=== PATIENT | female | born 1940 | race Caucasian/White ===

== ENCOUNTER 2020-07-23 13:03 | Emergency (ER) | payer OTHER ==
[~2020-07-23] VITALS: Ht 160 cm; Wt 56.7 kg
[2020-07-23] MEDS ORDERED: SYNTHROID137 MC1 PO ×2 (13:41)
[2020-07-23] MEDS ORDERED: BUSPIRONE HCL5 GM PO (13:42)
[2020-07-23 14:03] LABS: URINE BILIRUBIN NEGATIVE (Negative); URINE BLOOD NEGATIVE (Negative); URINE CLARITY CLEAR; URINE COLOR YELLOW; URINE GLUCOSE-RANDOM* NEGATIVE (Negative); URINE KETONES 1+ (Negative); URINE LEUKOCYTES-REFLEX NEGATIVE (Negative); URINE NITRITE-REFLEX NEGATIVE (Negative); URINE PROTEIN (DIPSTICK) NEGATIVE (Negative); URINE UROBILINOGEN 0.2 E.U./dl (0.2-1.0)
[2020-07-23 14:11] LABS: AMP/METHAMP Negative (Negative); BARBITURATES Negative (Negative); BENZODIAZEPINES Negative (Negative); COCAINE Negative (Negative); METHADONE Negative (Negative); OPIATES Negative (Negative); PCP Negative (Negative)
[2020-07-23 15:22] LABS: HEMOGLOBIN 14.8 gm/dL (12.0-15.0); MCH 32.5 pg (26.0-34.0); MCHC 34.4 g/dL (28.0-37.0); MCV 94.3 fL (80.0-100.0); RBC 4.56 mil/uL (4.20-5.00); WBC 6.3 thou/uL (4.0-11.0)
[2020-07-23 15:49] LABS: ANION GAP 12 mmol/L (7-16); BUN 12 mg/dL (7-18); CALCIUM 9.9 mg/dL (8.5-10.1); CHLORIDE 100 mmol/L (98-107); CO2 24 mmol/L (21-32); CREATININE 0.8 mg/dL (0.6-1.0); GLUCOSE 115 mg/dL (74-106); POTASSIUM 3.8 mmol/L (3.5-5.1); SODIUM 136 mmol/L (136-145)
[2020-07-23 15:55] LABS: ALBUMIN 4.7 g/dL (3.4-5.0); SALICYLATE < 2.8 mg/dL (2.8-20.0); SGOT 55 U/L (15-37); SGPT 59 U/L (14-59); TOTAL BILIRUBIN 0.5 mg/dL (0.2-1.0); TOTAL PROTEIN 8.4 g/dL (6.4-8.2)
[2020-07-23 23:16] VITALS: BP 115/53
[2020-07-24] MEDS ORDERED: SYNTHROID88 MC1 PO (05:32)
[2020-07-24] MEDS ORDERED: NORVASC5 MG PO (05:32)
[2020-07-24] MEDS ORDERED: RIVASTIGMINE6 MG PO (07:16)
[2020-07-24] MEDS ORDERED: DOXEPIN 25 MG C25 M1 PO (07:17)
== END 2020-07-24 04:47 ==
LOC: ER 13:03
PROVIDERS: Nurse Practitioner Family
DX: F32.9 Major depressive disorder, single episode, unspecified (principal); F03.90 Unspecified dementia, unspecified severity, without behavioral disturbance, psychotic disturbance, mood disturbance, and anxiety; I10 Essential (primary) hypertension; Z79.899 Other long term (current) drug therapy; Z20.822 Contact with and (suspected) exposure to COVID-19

== ENCOUNTER 2020-07-23 16:29 | Inpatient (IN) | payer OTHER ==
[~2020-07-23] VITALS: Ht 160 cm; Wt 64.2 kg
--- NOTE | ~2020-07-23 | D ---
[facility] [place] [address] DISCHARGE SUMMARY Name: ELIZA GUIDRY Room #: 522B-B DIS IN M.R.#: [id number] Admission: 07/24/20 Attend Phys: Jae Aponte DO Discharge: 07/26/20 Date of : 44 Report #: [id number] THIS REPORT FOR: cc: Jose Haynes MD, Christopher B. MD Kerstein, Andrew H. DO ~ DATE OF SERVICE: 07/26/2020 INPATIENT PSYCHIATRIC DISCHARGE ATTENDING PHYSICIAN: Jae Aponte DO. ENROLLMENT MANAGEMENT COORDINATOR: Tiburcio Galaviz MD Please note, the patient was discharged emergently to the CCU after she had a witnessed seizure. DISCHARGE DIAGNOSES: Besides the seizure is as follows: Major neurocognitive disorder with behavioral disturbance, unspecified depression. Other medical comorbidities include hypertension, on Norvasc; hypothyroidism, on Synthroid and insomnia. DISCHARGE MEDICATIONS: Per the hospitalist ____ emergency nature. DISCHARGE DIET: Regular ____ n.p.o. LABORATORY DATA: Significant laboratories this admission included, it looks like al that was from 07/27/2020 after she went medical. REASON FOR PSYCHIATRIC ADMISSION: Back on the is as follows; 80-year-old female, [facility] referred by Dr. Jose Haynes. Laboratories were grossly normal, done in the ER. COVID-19 PCR was negative. TSH is 1.205. Apparently, the patient has been unable to sleep for about 3 nights, history of dementia, also her residence was in poor condition. HOSPITAL COURSE: The patient was admitted to Geriatric Psychiatry Unit. She had actually a SLUMS score of 24/30, dementia was reportedly diagnosed by ____ and Dr. Elizabeth. Basically ____ gotten much further and clinical progress when the seizure occurred. There is no discharge mental status examination. VITAL SIGNS: At time of discharge to Medical Unit are as follows: Temperature 98.1, pulse ____, BP ____, O2 sat 100%. The medical workup and so forth for the seizures covered in the hospitalist [facility] [address] [place] [address] DISCHARGE SUMMARY Name: ELIZA GUIDRY Room #: 522B-B [facility]#: [id number] Admission: 07/24/20 Attend Phys: Jae Aponte DO Discharge: 07/26/20 Date of : 42 Report #: [id number] PROGNOSIS: For this patient is guarded, I will be happy to continue to follow her while she is on the Medical Unit. By: 2154 Jae Aponte DO /nt
[~2020-07-23 16:29] MED LIST: BUSPIRONE HCL5 GM PO; SYNTHROID137 MC1 PO
[2020-07-24] MEDS ORDERED: NORVASC5 MG PO (05:32)
[2020-07-24] MEDS ORDERED: SYNTHROID88 MC1 PO (05:32)
[2020-07-24 06:33] VITALS: BP 102/62
--- NOTE | 2020-07-24 06:55 | NUR ---
RECIEVED PT FROM ED VIA SLICK UPON ARRIVAL TO UNIT PT ALERT AND ORIENTED X4 CALM AND COOPERATIVE,ASSESSMENT AND DATA BASE COMPLETED. DISCUSSED PLAN OF CARE. PT STATES SHE IS REASDY TO RETURN TO HER HOME AND THAT SHE HERE DUE TO HER BEING LONELY AND MAYBE ANXIOUS. PT RESTING IN BED.
[2020-07-24] MEDS ORDERED: RIVASTIGMINE6 MG PO (07:16)
[2020-07-24] MEDS ORDERED: DOXEPIN 25 MG C25 M1 PO (07:17)
[2020-07-24 09:52] VITALS: BP 112/79
--- NOTE | 2020-07-24 13:53 | NUR ---
Nutrition: pt admit with major neurocognitive disorder, demenita, anxiety. Hx of depression, HTN. No breakfast intake, nsg reported to was slow to eat lunch and only finished about 50%. Wt is WNL, no wt hx. Albumin WNL. Meds reviewed. Will trial Ensure Enlive BID. Assessed at low-mild nutrition risk, RD follow-up 07/29.
--- NOTE | 2020-07-24 17:46 | NUR ---
0700 ASSUMED CARE OF PATIENT, PATIENT CALM AND COOPERATIVE. AMB WITH A STEADY GAIT. MEDICATIONS TAKEN WHOLE. PREOCCUPIED WITH MEDICATIONS AND BELIEVES SOME ARE MAKING HER SHAKE MORE THAN NORMAL. PATIENTS VITALS WNL. NO C/O PAIN. PATIENT SPOKE WITH DR COCHRAN REGARDING MEDICATION. PATIENT ALERT AND ORIENTED X3. LS CLEAR, BS ACTIVE. DENIES SI/HI.
[2020-07-24 19:26] VITALS: BP 112/79; BP 160/80
--- NOTE | 2020-07-25 05:30 | NUR ---
RECEIVED CARE OF THIS PATIENT AT 1900. PATIENT ALERT AND ORIEENTED XT PERSON AND PLACE. DOES NOT UNDERSTAND WHY SHE IS HERE NOR HOW SHE GOT HERE. AXIOUS ABOUT HER MEDICATIONS. DOES NOT WANT TO TAKE LEVOTHYROXINE FOR HER SYNTHROID. WORRIED ABOUT HER PURSE AND HER PHONE. WANTS IT TO BE CHARGED SO SHE CAN MAKE CALLS THIS AM. DENIES BEING AND HAVING A GRANDSON. WANTS TO KNOW HOW SHE CAN SIGH HER SELF OUT. VERY PARANOID, AGITATED, ANGRY, CONFUSED AND REPETITIVE. HAS BEEN UP TO NURSES STATION SEVERAL TIMES ASKING THE SAME QUESTIONS. EXPLAINED TO HER THAT THE HEATING AND COOLING TECHNICIAN HAD NO WAY OF KNOWING THE ANSWER TO ANY OF HER QUESTIONS. WANTS TO MOVE TO THE OTHER BED IN THE ROOM. WANTED TO GET HER MASK THAT GOES OVER HER EYES AND EARPLUGS TO HELP HER GO TO SLEEP. SHE DENIES PAIN. HAS NOT SLEPT THIS SHIFT.
[2020-07-25 08:27] VITALS: BP 123/77
[2020-07-25 13:21] VITALS: BP 123/77
--- NOTE | 2020-07-25 13:49 | NUR ---
Assumed pt care at 0700. pt was alert and oriented x3. pt took meds whole, no difficulty noted. Assessments completed,vss. pt appeared frustrated about being in the hospital. pt sister acacia called to speak with pt. There no c/o pain at this time. pt ambulates with a steady gait. DEnies si/hi. No sign of acute distress noted upon assessments. will continue to monitor.
--- NOTE | 2020-07-25 15:57 | H ---
[facility] [place] [address] HISTORY AND PHYSICAL Name: ELIZA GUIDRY Room #: 522B-B ADM IN M.R.#: [id number] Admission: 07/24/20 Attend Phys: Jae Aponte DO Discharge: Date of : 42 Report #: [id number] THIS REPORT FOR: cc: Jose Haynes MD, Christopher B. MD Kerstein,Jae Foote DO ~ DATE OF SERVICE: 07/24/2020 INPATIENT PSYCHIATRIC EVALUATION ATTENDING PSYCHIATRIST: Jae Aponte DO. STOVE INSTALLER: Fozia Emmanuel APRN as well as Anderson Mccullough MD and his hospitalist team. SOURCES OF INFORMATION: Reviewed with the patient, telephone conversation with her guardian, data and chart review. CHIEF COMPLAINT: "I came here because of barometric pressure drop." HISTORY OF PRESENT ILLNESS: This is a 80-year-old female, currently in independent living situation in an apartment brought to the ER today by her family. She sees Dr. Jose Haynes and there is a concern about self-care failure. Currently, she is under [place] guardianship that is recent. The patient was noted in the ER to have a flat affect and difficult to get a good history from her. She denies any complaints other than not being able to sleep, but she has been going on for the last 30-40 years, which is causing her frequent headaches. Her guardian states she has been unable to sleep for about like 3 nights when I talked to him. She also stated in the ER, she sleeps just 5 hours a day and was not able to nap at all. She has a history of dementia apparently diagnosed by Dr. Anatoliy Leija and Dr. Elizabeth- none of their records are available at present. She denied any visual changes, dizziness, chest pain, shortness of breath, abdominal pain, nausea, vomiting, diarrhea, constipation, urinary symptoms, rash, or suicidal thoughts. When asked about depression, she states "I am a little depressed every now and then." Apparently, she set up to go to an assisted living at [facility] later this month, but it is not memory care. PAST MEDICAL HISTORY: Hypertension. PAST PSYCHIATRIC HISTORY: Dementia. HOME MEDICATIONS: Reportedly, levothyroxine 88 mcg oral daily and buspirone 5 mg oral twice per day. We had a somewhat different list from guardian where she [address] [place] [address] HISTORY AND PHYSICAL Name: ELIZA GUIDRY Room #: 522B-B ADM IN .R.#: [id number] Admission: 07/24/20 Attend Phys: Jae Aponte DO Discharge: Date of : 42 Report #: [id number] was taking it 50 mg twice per day as well as buspirone, levothyroxine, and an antihypertensive. ALLERGIES: No known allergies. Weight 56.70 kilos. LABORATORY DATA: Laboratories were grossly normal. Sodium 136, potassium 3.9, chloride 102, bicarbonate 24, anion gap 12, BUN 12, creatinine 0.8, estimated GFR 69, glucose 115, calcium 9.9, total bilirubin 0.5, AST 55, ALT 59, total protein 8.4, albumin 4.7, White count 6.3, H and H 14.8 and 43.0, platelet count 289. COVID-19 PCR is pending. I was told it was negative though. Salicylate less than 2.8, acetaminophen less than 2. Urine drug screen was negative. Serum alcohol was less than 10. Urinalysis showed 1+ ketones. TSH is 1.205 and COVID-19 PCR is definitely negative. VITAL SIGNS: Temperature 36.7, pulse 85, respirations 18, BP 160/80, O2 sat 98%. It is unknown exactly when the patient last worked. 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 No known physical, sexual or emotional abuse history. She reports her level of education as half a nursing degree and half a liberal arts degree. PHYSICAL EXAMINATION: Normal gait and station. MSE: This is a well-developed, fairly nourished female. BMI 24.8, appearing stated age. Attention fair. Concentration limited. Speech is normal rate, volume and tone. Thought process is linear and goal directed. Thought content focused on why she was brought to the hospital and she reported if the barometric pressure dropped. Denied SI or HI. Denied auditory, visual, or tactile hallucinations. Mood and affect was congruent and euthymic. Insight and judgment limited. Fund of knowledge, no greater than average. Of note, I did administer a [facility] Mental Status examination: The patient scored a 24/30. She had some deficits recall as well as short-term memory. FORMULATION: A 80-year-old female, brought in due to self-care failure and concerns noted above. Her family found her in apartment in quite state of disorder, numerous medications that were unopened. 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 PLAN: The patient was admitted to Geriatric Psychiatry Unit. She is under [address] [address] HISTORY AND PHYSICAL Name: ELIZA GUIDRY Room #: 522B-B ADM IN M.R.#: [id number] Admission: 07/24/20 Attend Phys: Jae Aponte DO Discharge: Date of : 42 Report #: [id number] guardianship. Spoke to one of her co-guardians Arnoldo. Family will text me to clarify some of the medication doses she is taking. Currently in the hospital, she is getting rivastigmine 6 mg oral twice a day, doxepin was discontinued, buspirone 5 mg oral twice a day, amlodipine 5 mg oral daily, levothyroxine 88 mcg oral daily, we will leave this in place for now. ESTIMATED LENGTH OF STAY: 10-14 days. The patient will likely require memory care placement. Ms. Thomas will be covering this weekend, I will be back on 07/27/2020. Time spent on this case, greater than 60 minutes, greater than 50% of time was spent on review of records, coordination of care. <ELECTRONICALLY SIGNED> By: Jae Aponte DO 07/25/20 1557 22 51 Jae Aponte DO /nt
[2020-07-25 20:02] VITALS: BP 137/107
--- NOTE | 2020-07-26 02:16 | NUR ---
Assumed care on 07/25/20 @ 1900, seated in the day room watching TV and socializing with female peers. A&Ox3, Cooperated with assessment, HRRR, Lungs CTA bilat, ABD N x4Q, reports BM 2 days ago. VSS, Took PRN Trazadone 50 @ 2155, taking meds whole with water, and retired to bed when the TV was turned off @ 2200. Asked for a bible to read, then reported that she could not read the small type without her glasses. Up and down from bed several times. Will continue to monitor as per unit protocol for safety and comfort.
[2020-07-26 09:51] VITALS: BP 148/102
[2020-07-26 12:06] VITALS: BP 148/102
--- NOTE | 2020-07-26 12:40 | NUR ---
ASSUMED PT CARE AT 0700. ALERT AND ORIENTED X3. DENIES SI/HI. DENIES PAIN. aSSESSMENTS COMPLETED,VSS. PARTICIPATED IN GROUPS. AMBULATES WITH A STEADY. TOOK MEDS WHOLE WITH THIN LIQUID. THERE IS NO SIGN OF ACUTE DISTRESS NOTED AT THIS TIME. PT IS IN THE DAY ROOM EATING LUNCH. CO-OPERATIVE WITH CARE, BUT VERY DEMANDING. WILL CONTINUE TO MONITOR PT
[2020-07-26 19:34] VITALS: BP 155/74
--- NOTE | 2020-07-26 20:15 | NUR ---
07-26-20 CARE TRANSFERRED 0 OBSERVED PT WALKING IN HALLWAY, PT REQUESTED A BANDAID R/T HANGNAIL. BANDAID FIRST FINGER RT. LATER RESPONDED FROM MEDICATION ROOM TO DAY ROOM AND OBSERVED PT ON FLOOR AND UNIVERSITY LIBRARIAN AT PT SIDE, RETRIVED CRASH CART AND STARTED 10L O2 WITH REBREATHER, PT PUPLIS FIXED, THIS INFORMATION WAS TRANSFERRED AND CARE WAS TRANSFERRED TO CODE TEAM. THIS HEATER INSTALLER ROLE CHANGES TO SUPPORTING CODE TEAM.
[2020-07-26 20:27] LABS: HEMATOCRIT 41.7 % (37.0-47.0); HEMOGLOBIN 13.9 gm/dL (12.0-15.0); MCH 32.6 pg (26.0-34.0); MCHC 33.2 g/dL (28.0-37.0); MCV 97.9 fL (80.0-100.0); RBC 4.26 mil/uL (4.20-5.00); RDW 14.4 % (10.5-14.5); WBC 8.4 thou/uL (4.0-11.0)
[2020-07-26 20:33] LABS: ANION GAP 21 mmol/L (7-16); BUN 22 mg/dL (7-18); CALCIUM 10.2 mg/dL (8.5-10.1); CHLORIDE 97 mmol/L (98-107); CO2 19 mmol/L (21-32); CREATININE 1.4 mg/dL (0.6-1.0); GLUCOSE 113 mg/dL (74-106); POTASSIUM 3.9 mmol/L (3.5-5.1); SODIUM 137 mmol/L (136-145)
[2020-07-26 20:42] LABS: ALBUMIN 4.4 g/dL (3.4-5.0); MAGNESIUM 2.2 mg/dL (1.8-2.4); SGOT 49 U/L (15-37); SGPT 57 U/L (14-59); TOTAL BILIRUBIN 0.3 mg/dL (0.2-1.0); TOTAL PROTEIN 8.2 g/dL (6.4-8.2); TROPONIN-I <0.06 ng/mL (<0.06)
--- NOTE | 2020-07-26 22:24 | NUR ---
HEMP FIBER TAKER OFF called at 1954 for apparent seizure activity. See HEMP FIBER TAKER OFF flowsheet.
--- NOTE | 2020-07-27 04:53 | NUR ---
AT AROUND 1999 A MOLD BUILDER CALLED FOR HELP FROM DINING ROOM. THIS NURSE RAN TO HELP. PT WAS SEEN CONVULSING IN A CHAIR AT THE TABLE. KEPT PATIENT SAFE SHE CONVULSED. PT LIPS BEGAN TURNING BLUE AND EYES ROLLED TO BACK OF HEAD. WITH MOLD BUILDER LOWERED PATIENT TO THE FLOOR. IN MEANTIME, [facility] RESPONSE WAS CALLED AND CRASH CART BEING OBTAINED. PATIENT PINKED UP AND BREATHING AGAIN ONCE PT WAS LAID ON THE FLOOR. THIS NURSE GUARDED PATIENT'S HEAD. PT DID NOT BITE TONGUE. PT WAS AGITATED AND CONFUSED WHEN COMING TO. PATIENT TAKEN BY TRENTON COLLIER TO ROOM FOR EKG BUT PATIENT WAS TOO COMBATIVE TO GET EKG. PATIENT CALMED SHE WAS COMING OUT OF HER DISORIENTED STATE. PT TAKEN BY BED WITH THIS NURSE AND MOLD BUILDER TO RADIOLOGY FOR CT SCAN. PATIENT STATES SHE HAS NEVER HAD A SEIZURE BEFORE AND NO RECORD WAS NOTED OF ONE IN CHART REVIEW. STAYED WITH PATIENT TILL CARDIOLOGY CLINICAL CONSULTANT CAME AND WITH MOLD BUILDER TOOK PATIENT TO ROOM 210.
== END 2020-07-26 20:50 | disposition short-term general hospital (02) | DRG 881 ==
LOC: SBH
PROVIDERS: Nurse Practitioner Family; ADMIT Psychiatry & Neurology Psychiatry; ATTEND Psychiatry & Neurology Psychiatry
DX: F32.9 Major depressive disorder, single episode, unspecified (principal); F01.51 Vascular dementia, unspecified severity, with behavioral disturbance; I10 Essential (primary) hypertension; E03.9 Hypothyroidism, unspecified; G47.00 Insomnia, unspecified; Z60.2 Problems related to living alone
CPT/HCPCS: 10880

== ENCOUNTER 2020-07-26 20:36 | Inpatient (IN) | payer OTHER ==
[~2020-07-26] VITALS: Ht 160 cm; Wt 63.7 kg
--- NOTE | ~2020-07-26 | EEG ---
[facility] [place] [address] ELECTROENCEPHALOGRAM Name: ELIZA GUIDRY Room #: 210-P ADM IN M.R.#: [id number] Admission: 07/26/20 Attend Phys: Anderson Mccullough MD Discharge: Date of : 42 Report #: [id number] THIS REPORT FOR: //name// DATE OF SERVICE: 07/27/2020 This patient is being evaluated for seizure. EEG was done by placing the electrode by standard 10-20 system of electrode placement. Both referential and sequential montages were used for recording. Background activity in this patient's EEG is about 10 Hz and 30 microvolts. It is a symmetrical activity. The patient went to sleep and that is associated with bilateral slowing and vertex sharp waves. Photic stimulation is unremarkable. Throughout the record, no active epileptiform activity was noticed. IMPRESSION: This patient's EEG is within normal limits. It might be mentioned that EEG can be normal in a patient with a seizure disorder. Therefore, clinical correlation is recommended. Thank you very much for this referral. By: [id number] [id number] Loi Dias MD /nt
--- NOTE | ~2020-07-26 | HC ---
[facility] [place] [address] CONSULTATION Name: ELIZA GUIDRY Room #: 210-P ADM IN M.R.#: [id number] Admission: 07/26/20 Attend Phys: Anderson Mccullough MD Discharge: Date of : 42 Report #: [id number] THIS REPORT FOR: cc: Jose Haynes MD, Christopher B. MD Khosla, Parveen K. MD ~ DATE OF SERVICE: 07/27/2020 HISTORY OF PRESENT ILLNESS: This is a 80-year-old female patient who was evaluated by me for seizure. I reviewed the records in this patient and I talked to the patient herself. This patient provides a reasonably good history, although because of memory issues, I cannot fully confirm that. She said she had a seizure and the records indicate the same thing. It does not look like the patient sustained any trauma during the seizures. There was a postictal period after the seizure. The patient may have been confused at that time. She feels back to herself. REVIEW OF SYSTEMS: Indicate that she was admitted to [facility]. She does have a history of dementia and depression. She does not know if any medication was started recently. It does not look like she is on any medications like Wellbutrin. She does drink up to 2 alcoholic drinks every night. She mainly drinks wine. She does have a chronic insomnia. It looks like she was dehydrated because yesterday her GFR was only 36 and today it is 61. She was given a loading dose of Keppra and she is on a maintenance dose of Keppra. She is getting normal saline. I do not know what the blood pressure was when this happened, but her blood pressure fluctuates and the last blood pressure was only 93/46. She is not a diabetic. She is hypertensive. She takes medication for that. As mentioned above, I do not know what her blood pressure was when this episode happened. She denies any eye, ENT, cardiac, respiratory, GI, , musculoskeletal, constitutional, dermatological, hematological, psychiatric, throat, allergic symptom associated with present symptomatology. PAST MEDICAL HISTORY: Negative for any stroke or seizure. FAMILY HISTORY: Negative for early age epilepsy. SOCIAL HISTORY: She drinks alcohol daily, but drinks about 1-2 alcoholic drinks a day. PHYSICAL EXAMINATION: VITAL SIGNS: Blood pressure is 93/46, respirations 15, pulse is 80, temperature is 98.4. GENERAL: She is reasonably built individual who does not have any dysmorphic features of eyes, ears and face. Her hearing and vision looks adequate. [facility] [address] [place] [address] CONSULTATION Name: ELIZA GUIDRY Room #: 210-P [facility] IN M.R.#: [id number] Admission: 07/26/20 Attend Phys: Anderson Mccullough MD Discharge: Date of : 42 Report #: [id number] are palpable. CARDIAC: Unremarkable. LUNGS: No respiratory difficulty was noticed. NEUROLOGIC: The patient's examination indicate she is alert. She cannot tell me what month it is. She indicates that she does not have a calendar and therefore she usually does not remember the dates and the months. She knew what hospital she was in. She knew who the president was. Cranial nerve examination 2-12 looks unremarkable. Neuromuscular examination as checked for strength, sensation, reflexes and tone were symmetrical. She does not have any cerebellar sign. I did not make her walk. She does not have any meningeal sign. I could not look at the patient's fundus. IMPRESSION AND PLAN: This patient appeared to have seizure by history. She was dehydrated. She does drink alcoholic drinks every day, although in small amount and we may not find a cause for her seizure, but we need to look for that. Her MRI is scheduled. Her EEG is scheduled. The patient has an option of going on anticonvulsant or just watching without it because it is difficult to say whether it was a provoked seizure or not. I will put her on thiamine. She should take seizure precautions and cannot drive for 6 months. It is up to her if she wants to be on medications or not. Presently, she is on medication and if she wants to stay on Keppra, she can be left on that, but with possible dehydration and the patient drinking alcohol every night even in small amount can cause seizures, especially if the patient does have a neurocognitive disorder in the baseline. Thank you very much for this referral. We will talk to you and I will order some more blood workup in this patient. By: 0705 0716 Loi Dias MD /nt
[~2020-07-26 20:36] MED LIST changes: +DOXEPIN 25 MG C25 M1 PO; +NORVASC5 MG PO; +RIVASTIGMINE6 MG PO; +SYNTHROID88 MC1 PO
[2020-07-26 20:53] VITALS: BP 137/68
[2020-07-27 04:31] VITALS: BP 93/46
[2020-07-27 05:06] LABS: CREATININE 0.9 mg/dL (0.6-1.0); POTASSIUM 3.4 mmol/L (3.5-5.1)
[2020-07-27 07:22] LABS: HEMATOCRIT 37.4 % (37.0-47.0); HEMOGLOBIN 12.3 gm/dL (12.0-15.0); MCH 31.7 pg (26.0-34.0); RBC 3.89 mil/uL (4.20-5.00); RDW 14.5 % (10.5-14.5); WBC 8.3 thou/uL (4.0-11.0)
[2020-07-27 08:00] VITALS: BP 117/53
--- NOTE | 2020-07-27 08:05 | NUR ---
PT ADMITTED TO ROOM 210 AFTER [facility]PON[facility] CALLED ON [facility]. PT W/NEW ONSET SEIZURE THAT HAD LASTED 20-[address] HEAD DONE PRIOR TO ARRIVAL TO FLOOR. PT ARRIVED ABOUT 2100, ADMISSION AND ASSESSMENT COMPLETED. PT A&Ox4 BUT FORGETFUL AND FUSSY/NEEDY; EDUCATED AT LENGTH THAT PT COULD NOT BE UP WALKING AROUND D/T SEIZURE RISKS, SHE HAD BEEN UP AD [facility]. PT ASKED FOR SLEEPING PILL, OBTAINED ORDER FOR BENADRYL, BUT WHEN GOING TO PT'S ROOM , SHE WAS ALREADY ASLEEP. SLEPT ABOUT 4-5 HOURS WITHOUT INTERRUPTION OVERNIGHT. IV PLACED TO R FA. ON RA, CONTINENT, NO SEIZURE ACTIVITY NOTED OVERNIGHT. NO OTHER CONCERNS, SHIFT REPORT GIVEN O700.
--- NOTE | 2020-07-27 08:17 | NUR ---
PAGE DR. GARCIA OFFICE TO INFORM MRI NOT WORKING TODAY AND WILL HAVE TO WAIT FOR TOMORROW.
--- NOTE | 2020-07-27 08:46 | NUR ---
PT CALM AND PLEASANT THIS AM. STATES THAT SHE JUST WISHES TO SLEEP. GAVE AM MEDS AND WILL ALLOW PT TO REST. BED ALRM SET, SEIZURE PRECAUTIONS IN PLACE. BED LOW AND LOCKED. WILL CONTINUE TO ASSESS.
[2020-07-27 08:54] LABS: ALBUMIN 3.5 g/dL (3.4-5.0); TOTAL BILIRUBIN 0.4 mg/dL (0.2-1.0); TOTAL PROTEIN 6.3 g/dL (6.4-8.2)
--- NOTE | 2020-07-27 09:55 | NUR ---
DR. TREVINO TO TALK TO SON ABOUT PLAN OF CARE.
[2020-07-27 12:00] VITALS: BP 99/52
--- NOTE | 2020-07-27 15:06 | NUR ---
CONSULT [id number] WAS COMPLETED BY THIS CLUB ROOM ATTENDANT. THIS CLUB ROOM ATTENDANT MET WITH PATIENT. SHE WAS AT A LOSS ABOUT HOW TO REACH HER GUARDIANS SINCE SHE DOES NOT HAVE HER CELL PHONE IN HER ROOM. -HER SISTER IS HERNAN GIBSON WHOM IS MARIED TO [facility] AT [phone]. WE ATTEMPTED TO REACH THEM TO LET THEM KNOW SHE IS IN THE HOSPITAL. SHE LEFT A MESSAGE. -HER GUARDIANS ARE HER TWO NEPHEWS: A.) ALMA ROSA GIBSON B.) CASSANDRA VALENZUELA tHIS CLUB ROOM ATTENDANT JUST TRIED TO REACH HER SISTER AGAIN AT 1515 HOURS AND THER WAS NO ANSWER. THERE WAS NO ANSWER.
[2020-07-27 16:00] VITALS: BP 104/46
--- NOTE | 2020-07-27 16:44 | NUR ---
Patient admits from [facility] due to seizure. Sp with nephew Arnoldo who reports he is co guardian with other nephew. he reports plan for patient to leave her independent apt and transition to other facility. Discussed plan for patient to return to [facility] at k[facility] from acute care. Sp with Dr Aponte. casemgt following.
--- NOTE | 2020-07-27 19:10 | NUR ---
PT RESTED IN BED MOST OF THE DAY AND ENCOURAGED TO USE CALL LIGHT WHEN NEEDING TO GET OUT OF BED. UPDATE DPOA AT BEDSIDE AND FAMILY. PT DENIED PAIN OR SOA. REPORT GIVEN AT BEDSIDE TO NIGHT RN.
[2020-07-27 19:22] VITALS: BP 111/65
--- NOTE | 2020-07-27 20:58 | NUR ---
PT VERY CHEERFUL PLEASANT THANKFUL. PT CONTINUES TO GET OOB WITH OUT CALLING FOR HELP. STEADY GAIT BUT IVF INTACT. BED ALARM ON. PROVIDED HS SNACK. PT CONTINUES TO MAKE REPETITIVE QUESTIONS AND STATEMENT.
--- NOTE | 2020-07-27 23:16 | NUR ---
ASSUMED PATIENT CARE AT 2200.
[2020-07-28 04:10] VITALS: BP 120/63
[2020-07-28 08:00] VITALS: BP 110/54; BP 124/75
[2020-07-28 11:48] VITALS: BP 116/63
[2020-07-28] MEDS ORDERED: B-12500 MCG PO (15:18)
[2020-07-28] MEDS ORDERED: NORVASC10 MG PO (15:18)
[2020-07-28] MEDS ORDERED: KEPPRA 500 MG500 M1 PO (15:18)
[2020-07-28] MEDS ORDERED: VITAMIN B-1100 M2 PO (15:18)
[2020-07-28] MEDS ORDERED: TRAZODONE HCL50 MG PO (15:18)
[2020-07-28 16:00] VITALS: BP 152/84
--- NOTE | 2020-07-28 17:59 | NUR ---
PT ALERT AND ORIENTED X3 WITH SHORT TERM MEMORY LOSS. PT STEADY WITH AMBULATION, MRI COMPLETED TODAY, CLEARED FROM NEURO TO GO BACK TO [facility], FAMILY CALLED AND UPDATED. PT NOTIFIED OF PLAN AND IS CONFUSED CALLING FAMILY WANTING TO GO HOME. PT RE EDUCATED AT THIS TIME [facility] CALLED AND REPORT GAVE
== END 2020-07-28 18:27 | DRG 100 ==
LOC: 2N 20:36
PROVIDERS: Nurse Practitioner Family; Psychiatry & Neurology Neuromuscular Medicine; ADMIT Hospitalist; ATTEND Hospitalist
DX: R56.9 Unspecified convulsions (principal); N17.0 Acute kidney failure with tubular necrosis; E87.2 Acidosis; E87.6 Hypokalemia; G47.00 Insomnia, unspecified; F32.9 Major depressive disorder, single episode, unspecified; E03.9 Hypothyroidism, unspecified; I10 Essential (primary) hypertension; F01.50 Vascular dementia, unspecified severity, without behavioral disturbance, psychotic disturbance, mood disturbance, and anxiety; F10.10 Alcohol abuse, uncomplicated; K59.00 Constipation, unspecified; Y90.9 Presence of alcohol in blood, level not specified; E53.8 Deficiency of other specified B group vitamins; N39.3 Stress incontinence (female) (male); Z60.2 Problems related to living alone; Z79.899 Other long term (current) drug therapy
CPT/HCPCS: 10081

== ENCOUNTER 2020-07-28 17:50 | Inpatient (IN) | payer OTHER ==
[~2020-07-28] VITALS: Ht 160 cm; Wt 62.7 kg
[~2020-07-28 17:50] MED LIST changes: +B-12500 MCG PO; +KEPPRA 500 MG500 M1 PO; +NORVASC10 MG PO; +TRAZODONE HCL50 MG PO; +VITAMIN B-1100 M2 PO
[2020-07-28 19:13] VITALS: BP 136/82
--- NOTE | 2020-07-28 23:15 | NUR ---
Assumed care on 07/28/20 @ 1900, returned from [facility]U floor to [facility] floor just before 1900 shift change. Confusion noted, repeats her questions over and over again. Oriented x3. Orders obtained from Layton Santos NP, entered and verified. New order obtained for Trazadone 50 an hour after the initial dose, as patient is restless and unable to sleep. Will continue to monitor for safety and comfort as per unit protocol.
[2020-07-29 05:55] LABS: ABSOLUTE NEUTROPHILS 2.5 thou/uL (1.4-8.2); BASOPHILS 1.9 % (0.0-2.0); EOSINOPHILS 3.9 % (0.0-3.0); HEMATOCRIT 36.8 % (37.0-47.0); HEMOGLOBIN 12.5 gm/dL (12.0-15.0); LYMPHOCYTES 26.7 % (24.0-44.0); MCH 32.3 pg (26.0-34.0); MCHC 33.9 g/dL (28.0-37.0); MCV 95.4 fL (80.0-100.0); MONOCYTES 15.4 % (1.0-8.0); PLATELET COUNT 232 thou/uL (150-400); POLYS 52.1 % (36.0-66.0); RBC 3.86 mil/uL (4.20-5.00); RDW 13.7 % (10.5-14.5); WBC 4.9 thou/uL (4.0-11.0)
[2020-07-29 06:10] LABS: ALBUMIN 3.5 g/dL (3.4-5.0); CALCIUM 9.1 mg/dL (8.5-10.1); CREATININE 0.7 mg/dL (0.6-1.0); POTASSIUM 3.6 mmol/L (3.5-5.1); TOTAL BILIRUBIN 0.4 mg/dL (0.2-1.0); TOTAL PROTEIN 6.9 g/dL (6.4-8.2)
--- NOTE | 2020-07-29 12:51 | NUR ---
SW team received a phone call from Belle Stevens asking to assist with d/c planning at [phone]. SARA returned her call. No answer. SARA left a vm. SW team will continue to follow pt during her stay on this unit.
--- NOTE | 2020-07-29 14:16 | NUR ---
Assess due readmission to [facility]. Required transfer admit to acute care following seizure, now readmit back to [facility] on 07/28. Wts have been stable past week, and eats 75-100% most meals. B12 deficiency, level of 316 and has orders for supplementation. Low nutrition risk.
--- NOTE | 2020-07-29 15:35 | NUR ---
SARA and Dr. Aponte spoke with pt's son Arnoldo at [phone] to discuss next steps for pt. He said he has placement for her to go to on 08/[address] to [facility]. Aponte explained that location only has AL and pt needs memory care. Arnoldo agreed. SARA told Arnoldo she will check with [facility] and see if any location has a memory care. If not, she will look for placement elsewhere. Arnoldo said she is being placed on a Medicaid basis. SARA told him she will do her best to stay in the area of [place] where she will be close to family. SARA contacted [facility] and did not receive an answer in any department. SARA then contacted 2 other locations and received an answer at the location. SARA asked the part time receptionist if any of their locations have memory care and was advised that [facility] has a secured unit, but it is not memory care. This location is quite a distance from the [place] location. SARA team will continue to follow pt during her stay on this unit.
[2020-07-29 19:45] VITALS: BP 106/75
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
--- NOTE | 2020-07-30 04:51 | NUR ---
Assumed care on 07/29/20 @ 1900, A&Ox 3, Ambulates up ad keiko. Continent, last BM 07/28. Cooperates with Assessment and compliant with medications, taking meds whole with water. Co-Guardians are nephew, Arnoldo Green'Brien. Admitting DX: Major Neurocognitive disorder. Depression, Unspecified Dementia with behavior disturbances noted. Medicaly has had a seizure while on the [facility] floor and was transferred to CCU. Returned to [facility] on 07/28/20. Lorazepam provided @ HS. Responded well and slept throughout the night. Will continue to monitor for safety and comfort.
[2020-07-30 09:26] VITALS: BP 122/61
--- NOTE | 2020-07-30 16:55 | NUR ---
0700 ASSUMED CARE OF PATIENT, PATIENT IN BED AT THAT TIME. PATIENT REFUSED TO GET UP FOR BREAKFAST REMAINING IN BED. NURSE TO ROOM, PATIENT SLEEPY AND REFUSES TO GET UP. PATIENT NOT PRESENT IN GROUP THIS AM. MEDICATIONS TAKEN WHOLE WITHOUT DIFFICULTY. PATIENT UP TO DAYROOM AFTER WORKING WITH PT. PATIENT PROOCUPIED WITH DC AND TO NURSES STATION MULTIPE TIMES ASKING WHEN DC WILL HAPPEN. PATIENT STATES "I NEED TO KNOW SO I CAN NOTIFY THE CORRECT PEOPLE".
[2020-07-30 19:44] VITALS: BP 114/70
[2020-07-31 04:16] VITALS: BP 114/70
--- NOTE | 2020-07-31 04:26 | NUR ---
Assumed care on 07/30/20 seated in the day room socializing with female peers and watching TV. Continent of B&B and ambulatory. A&O x3, confusion noted. Cleaned face and retired to bed @ HS. Slept well overnight, bed in low position, low fall risk. Will continue to monitor as per unit protocol for safety and comfort.
[2020-07-31 09:21] VITALS: BP 122/66
[2020-07-31 10:29] VITALS: BP 124/66
--- NOTE | 2020-07-31 11:23 | NUR ---
1115 RESUMMED CARE FROM OVERNIGHT SHIFT THIS AM, PATIENT ALERT ORIENTED TIMES 4. PATIENT DENIES SI/HI/AH/VH AT PRESENT, PATIENT IN DAY ROOM TALKING WITH OTHER PATIENTS. PATIENTS ABDOMEN SOFT BOWEL SOUNDS PRESENT PATIENTS LUNGS CLEAR. PATIENT IS SOMETIMES FORGETFUL AND SOME CONFUSION AT TIMES; PATIENT IS CONSTANTLY AT THE NURSES STATION ASKING TO CALL VARIOUS PEOPLE WHO IS NOT ON HER LIST. WILL CONTINUE TO MONITOR PATIENT FOR SAFETY AND BEHAVIORS.
--- NOTE | 2020-07-31 13:46 | NUR ---
SARA received a call from [facility] stating that she spoke with Leti in admissions with [facility], and she is interested in reviewing pt's referral. SARA contacted [facility] and left a msg for Leti. SARA then faxed a referral to [phone]. SARA also sent referrals to [facility], [facility], formerly [facility], and [facility]. Both [facility] and [facility] denied pt's referral. SARA team will continue to follow pt during her stay on this unit.
[2020-07-31 19:36] VITALS: BP 149/78
[2020-07-31 21:46] VITALS: BP 149/78
--- NOTE | 2020-08-01 00:43 | NUR ---
Assumed care on 07/31/20 @ 1900, ambulating throughout the mileu, asks to make some phone calls. Reminded that she is not allowed to make any more phone calls today. Several times got the phone away from another patient who was talking on the phone and attempting to make phone calls to various people who are not on her call list. Reminded that this is the behavior that resulted in her phone privileges being suspended for the day. A&Ox3. Denies HI/SI, depression and anxiety, reporting that anxiety is better now. Staff reported that patient had a bm today, however patient denies a bm today. Retired to bed @ HS, eyes closed, respirations even and unlabored.
[2020-08-01 09:04] VITALS: BP 149/65
--- NOTE | 2020-08-01 18:32 | NUR ---
0700 ASSUMED CARE OF PATIENT, PATIENT AMB WITH STEADY GAIT. PATIENT CONTINUES TO BE PREOCCUPIED WITH HER DISCHARGE. MEDICATION TAKEN WHOLE WITHOUT DIFFICULTY. LS CLEAR, BS ACTIVE, NO C/O PAIN. PRESENT IN GROUPS TODAY. PATIENT CALLED FAMILY MEMBER AND NOTED CRYING DURING AND AFTER CALL. PATIENT HAS INCREASED ANXIETY WHEN COMMUNICATING ON PHONE. PATIENT DENIES NEEDS AT THAT TIME.
[2020-08-01 19:39] VITALS: BP 126/71
--- NOTE | 2020-08-02 02:40 | NUR ---
PATIENT AOX3 CONFUSED AND FORGETFUL AT TIMES. PATIENT HAD A FLAT AFFECT, POOR EYE CONTQACT, GOOD GROOMING AND HYGIENE. PATIENT HAD HIGH ANXIETY THIS SHIFT AND MILD DEPRESSION. PATIENT AMBULATES IN THE UNIT WITH STEADY GAITS. PATIENT IN BED ASLEEP AT THIS TIME BREATHING REGULAR AND UNLABOURED.
[2020-08-02 08:53] VITALS: BP 124/80
--- NOTE | 2020-08-02 15:37 | NUR ---
SW sent referrals to [facility], [facility] Cont[facility], and [facility].
[2020-08-02 19:22] VITALS: BP 163/67
--- NOTE | 2020-08-02 19:55 | NUR ---
0700 ASSUMED CARE OF PATIENT, PATIENT IN DAYROOM AT THAT TIME. PATIENT TAKES MEDICATION WHOLE WITOUT DIFFICULTIES. NO C/O PAIN, LS CLEAR, BS ACTIVE. PATIENT PREOCCUPIED WITH DISCHARGE PLANS AND ASKING MULTIPLE TIMES WHEN SHE WILL LEAVE. PATIENT USES PHONE AND NOTED CRYING WITH INCREASED ANXIETY. AMB WITH STEADY GAIT.
--- NOTE | 2020-08-03 00:17 | NUR ---
PT AMBULATING INDEPENDENTLY AND IS TOLERATING WELL. DENIES PAIN. TYLENOL PLUS BENADRYL GIVEN FOR INSOMNIA. FREQUENT OBSERVATION.
[2020-08-03 08:50] VITALS: BP 119/77
--- NOTE | 2020-08-03 16:11 | NUR ---
0700 ASSUMED CARE OF PATIENT, PATIENT IN ROOM AT THAT TIME. PATIENT AMB WITH STEADY GAIT. MEDICATIONS TAKEN WHOLE WITHOUT DIFFICULTY. NO C/O PAIN. LS CLEAR, BS ACTIVE. REPORTS LOOSE BM X 1 TODAY. VS STABLE. PATIENT PRESENT IN AM GROUP. PATIENT TO DESK REQUESTING PHONE. PATIENT REORIENTED TO PHONE USE AND RULES. PATIENT VERBALIZES UNDERSTANDING. LATER PATIENT TO DESK ASKING EVERYONE REGARDING PHONE USE AND IF ABLE TO MAKE MORE CALLS. WILL CONTINUE TO OBSERVE
[2020-08-03 19:34] VITALS: BP 154/78
--- NOTE | 2020-08-04 01:43 | NUR ---
ASSESSED PT. EVENING MEDS GIVEN WHOLE WITH WATER. PT STATES USUALLY HAS DIFFICULTY FALLING ASLEEP. TRAZADONE GIVEN AND PT WAS IN BED BY 2330. UP AD EDWIN TO THE BATHROOM. WILL CONT TO MONITOR.
[2020-08-04 08:53] VITALS: BP 125/61
[2020-08-04 08:57] VITALS: BP 125/61
[2020-08-04] MEDS ORDERED: EXELON1 EAC1 TRANSDERM (09:45)
[2020-08-04] MEDS ORDERED: MIRALAX17 GM PO (09:45)
[2020-08-04] MEDS ORDERED: PEPCID20 MG PO (09:46)
[2020-08-04] MEDS ORDERED: B-12500 MCG PO (09:46)
--- NOTE | 2020-08-04 09:52 | NUR ---
0700 ASSUMED CARE OF PATIENT, PATIENT IN BED AT THAT TIME. PATIENT AMB TO DAYROOM WITH STEADY GAIT. NO C/O PAIN, LS CLEAR, BS ACTIVE. PATIENT CONCERNED ABOUT FAMILY BEING NOTIFIED OF DISCHARGE TODAY. MEDICATION TAKEN WHOLE WITHOUT DIFFICULTY. PRESENT IN GROUP THIS AM.
--- NOTE | 2020-08-04 11:16 | NUR ---
PATIENT DRESSED AND READY FOR DC. MED TRANSPORT HERE. [facility] IN HANDS. PACKET GIVEN TO TRANSPORT. PATIENT AMB TO IN [place] OUTSIDE DOORS. PATIENT TRANSPORTED VIA TO VEHICLE ACCOMPANIED BY STAFF. FACILITY CALLED, UNABLE TO COMMUNICATE WITH RECIEVING STAFF MEMBER. PHONE [facility] [employer] [facility] WITH NO ANSWER. WILL ATTEMPT LATER. PATIENT DC'D AT 1032
--- NOTE | 2020-08-04 11:55 | NUR ---
SARA D/C NOTE SARA faxed to [facility] a copy of pt's discharge docs including a negative covid screen. SW will file this in pt's hospital file. No other needs for SW team to address at this time.
--- NOTE | 2020-08-05 08:29 | D ---
[facility] [place] [address] DISCHARGE SUMMARY Name: ELIZA GUIDRY Room #: 523B-B [facility] IN M.R.#: [id number] Admission: 07/28/20 Attend Phys: Jae Aponte DO Discharge: 08/04/20 Date of : 44 Report #: [id number] THIS REPORT FOR: cc: Jose Haynes MD, Christopher B. MD Kerstein,Jae Foote DO ~ DATE OF SERVICE: 08/04/2020 INPATIENT PSYCHIATRIC EVALUATION ATTENDING PSYCHIATRIST: Jae Aponte DO BUSINESS ANALYTICS FACULTY MEMBER: Dr. Carvajal. DISCHARGE DIAGNOSES: Major neurocognitive disorder due to Alzheimer's disease, mild degree with poor insight. MEDICAL COMORBIDITIES: Include constipation, improving; hypertension, on Norvasc with parameters; hypothyroidism, on replacement; B12 deficiency, being replaced; history of alcoholism; seizure disorder, on Keppra. HOSPITAL COURSE: The patient is being discharged to [facility] by receiving facility. ACTIVITY LEVEL: As tolerated. The patient requires 24/7 memory care. DISCHARGE MEDICATIONS: As follows: Levothyroxine 88 mcg oral daily for thyroid replacement; amlodipine 10 mg a day for hypertension, hold if systolic blood pressure less than 100; Keppra 500 mg oral twice daily for possible seizure disorder, as the patient is on medical for a few days for seizures; trazodone 50 mg oral daily at 2300, Rivastigmine patch 9.5 mg oral daily for cognitive enhancement, polyethylene glycol 17 grams oral daily for bowel motility, famotidine 20 mg oral daily for GERD, cyanocobalamin 500 mcg oral daily for supplementation. DIET: Regular. SOCIAL HISTORY: No alcohol, no illicit drugs. REASON FOR ADMISSION: The patient is on medical for a few days after generalized tonic-clonic seizures. Brain MRI was done while she was on the CCU. She did have marked hippocampal volume loss, which is consistent with an Alzheimer's process. HOSPITAL COURSE: She is readmitted to Geriatric Psychiatry. The patient behaved fairly well. She was focused on where she would be going. She [facility] [address] [place] [address] DISCHARGE SUMMARY Name: ELIZA GUIDRY Room #: 523B-B [facility] IN ..#: [id number] Admission: 07/28/20 Attend Phys: Jae Aponte DO Discharge: 08/04/20 Date of : 44 Report #: [id number] disagreed on the need for placement. She is under [place] guardianship and it was explained that the patient will have to live where her guardian wants. CONDITION AT DISCHARGE: No suicidal or homicidal ideations and felt to be ready for custodial. PHYSICAL EXAMINATION: VITAL SIGNS: Temperature 36.1, pulse 70, respirations 18, BP 125/61, O2 sat 97%. MUSCULOSKELETAL: Normal gait and station. MENTAL STATUS EXAMINATION: This is a well-developed, fairly nourished female, appearing stated age. Attention fair. Concentration limited. Speech is normal rate, volume and tone. Thought process: Linear and goal directed. Thought content: Focused on discharge. No SI, no HI. No hopelessness, no helplessness. No auditory, visual, or tactile hallucinations. Memory known to be impaired, but not formally tested. Insight limited. Judgment limited. Fund of knowledge: No greater than average. PROGNOSIS: For this patient is fair to guarded, given her neurodegenerative disease, although at the moment, she is tested in mild cognitive range on the SLUMS, but her judgment is clearly impaired. <ELECTRONICALLY SIGNED> By: Jae Aponte, 08/05/20 0829 [id number] Jae Aponte, /nt
== END 2020-08-04 10:35 | DRG 57 ==
LOC: SBH
PROVIDERS: Nurse Practitioner Family; ADMIT Psychiatry & Neurology Psychiatry; ATTEND Psychiatry & Neurology Psychiatry
DX: G30.9 Alzheimer's disease, unspecified (principal); F02.81 Dementia in other diseases classified elsewhere, unspecified severity, with behavioral disturbance; F01.51 Vascular dementia, unspecified severity, with behavioral disturbance; K59.00 Constipation, unspecified; F10.21 Alcohol dependence, in remission; I10 Essential (primary) hypertension; E03.9 Hypothyroidism, unspecified; E53.8 Deficiency of other specified B group vitamins; G40.909 Epilepsy, unspecified, not intractable, without status epilepticus; F41.1 Generalized anxiety disorder; F32.9 Major depressive disorder, single episode, unspecified; G47.00 Insomnia, unspecified; Z20.822 Contact with and (suspected) exposure to COVID-19
CPT/HCPCS: 10880